=== PATIENT | male | born 1975 ===

== ENCOUNTER 2021-05-06 07:44 | Day surgery (SDC) | payer BC ==
[2021-05-01 16:08] LABS: Absolute Lymphocytes (CBC) 2.8 K/uL (0.7-4.9); Hematocrit 46.2 % (39.6-49.0); Lymphocytes % 27.8 % (15.3-44.8); MPV 7.8 fL (7.6-11.3); RBC Red Blood Cell Count 5.22 M/uL (4.33-5.43)
[2021-05-01 16:16] LABS: Potassium 4.1 mmol/L (3.5-5.1)
[2021-05-06] MEDS ORDERED: Ringers Lactate 1,000 ML IV ONE (08:16)
[2021-05-06] MEDS ORDERED: CEFAZOLIN SODIUM 1 GM/VIAL ONE (08:16)
[2021-05-06] MEDS ORDERED: NA CHLORIDE 0.9% 50 ML ONE (08:16)
[2021-05-06] MEDS ORDERED: MIDAZOLAM HCL 2 MG/2 ML INJ ONE (08:19)
[2021-05-06] MEDS ORDERED: dexAMETHasone 10 MG/ML VIAL ONE (08:19)
[2021-05-06] MEDS ORDERED: LIDOCAINE 2% MPF 5 ML VIAL ONE (08:19)
[2021-05-06] MEDS ORDERED: KETOROLAC 30 MG/ML INJ ONE (08:19)
[2021-05-06] MEDS ORDERED: ROCURONIUM 50 MG/5 ML VIAL IV ONE (08:19)
[2021-05-06] MEDS ORDERED: LIDOCAINE 1% MPF 5 ML VIAL ONE (08:19)
[2021-05-06] MEDS ORDERED: propofoL 200 MG/20 ML VIAL IV ONE (08:19)
[2021-05-06] MEDS ORDERED: FENTANYL CITR 100 MCG/2 ML ONE (08:19)
[2021-05-06] MEDS ORDERED: ONDANSETRON 4 MG/2 ML VIAL ONE (08:20)
[2021-05-06] MEDS ORDERED: CELECOXIB 100 MG CAPSULE ONE ×2 (08:39→08:42)
[2021-05-06] MEDS ORDERED: ACETAMINOPHEN 500 MG TAB ONE (08:40)
[2021-05-06] MEDS ORDERED: ROPLVACAINE HCL 40 ML ONE (08:44)
[2021-05-06] MEDS ORDERED: ALBUTEROL 2.5 MG/3 ML NEB SOL ONE (11:59)
[2021-05-06] MEDS: HYDROMORPHONE HCL 1 MG/ML INJ ONE ×2 (12:03→12:08)
[2021-05-06 12:12] VITALS: O2SAT 92
[2021-05-06 13:28] VITALS: BP 138/84; TEMP 96.5
--- NOTE | 2021-05-06 23:04 | OP ---
Date of Procedure: 05/06/2021 Surgeon: Abiel Jarquin MD Preoperative Diagnosis: Right shoulder pain with probable impingement, bursitis, and acromioclavicul ar arthritis, possible biceps pathology or rotator cuff tear. Postoperative Diagnoses: 1.Right shoulder impingement with bursitis. 2.Right acromioclavicular arthritis. 3.Fraying of the biceps anchor. There is no rotator cuff tear seen. Procedure: 1.Arthroscopy of the right shoulder with debridement of biceps anchor and abundant synovial tissue. 2.Mini open subacromial decompression with distal clavicle excision and removal of bursa. Estimated Blood Loss: 20 cc. Complications: No complications. Specimens: No pathology specimens. Indications For Operation: The patient is a 45-year-old male who came to see me in my office with pe rsistent complaints of pain in his left shoulder, treated initially with injection and conservative m easures, however, failed to improve. Also treated with physical therapy and failed to improve. An M RI was done, which demonstrates no overt rotator cuff tear, although there did appear to be some infl ammation related to the bursa as well as some changes of the acromioclavicular joint. Risks, benefit s, and alternatives of different methods of treatments have been discussed with him, and he states he understands things as presented and wants to proceed with right shoulder surgery. Description Of Procedure: The patient was taken to the operating room and placed in supine position. General anesthesia was obtained by staff. Following this, he was placed in a beach chair position. Right upper extremity was then prepped and draped in usual sterile fashion for arthroscopy. Follow ing this, a standard posterior arthroscopy incision was then made for placement of arthroscopic camer a, which was placed atraumatically with one pass into the shoulder. This demonstrates a significant amount of synovial fraying as well as some hyperemia of the biceps tendon; however, the biceps tendon itself appeared to be intact with exception of some inflammation. Some of the labrum did appear to be frayed as well. An anterior arthroscopy portal was made lateral to the coracoid, allowing for the placement of a probe and shaver. The shaver was then placed within the shoulder and the synovial fr onding was removed as well as a wide debridement near the biceps anchor. Following this, the arthros copic instruments were removed. The posterior portal was stapled and the shoulder was then prepped a nd again all gloves and equipment were changed and palpation demonstrated the region of the acromiocl avicular joint. A standard incision was made lateral to this, carefully through skin and soft tissue s. There was quite a bit of adipose tissue, does lead down to the deltoid and the acromion. The le ading edge of the acromion is then revealed using a Bovie, and the deltoid as well as the coracoacrom ial ligament are tagged for later repair. A small anterior acromioplasty followed by subacromial acr omioplasty and a rasp were then used to allow for a smooth outlet. The bursa itself was removed usin g a rongeur and use of irrigation and movement of the shoulder demonstrates no obvious rotator cuff t ear. Attention was then turned to the acromioclavicular joint, which is somewhat obliquely aligned w ith a significant amount of downwardly projecting prominence as well as osteophyte formation. Charnl ey was used to protect the undersurface as distal clavicle excision was made, which parallels the ang le of the acromion. Intervening material was also removed. Care was made to maintain the clavicular ligaments. This was checked with a finger to ensure there was no impingement with cross-arm adducti on, also to unsure that there was no further bony prominences. After this was done, the shoulder was again inspected with good outlet and the wound was irrigated. The deltoid was then repaired back to the trapezial fascia as well as the acromion using bone tunnels as well as oversewn with Vicryl sutu res. The wound was again irrigated and the skin was closed using Vicryl sutures, followed by allie . The patient was then placed in a sterile dressing, awakened, and taken to recovery room in good condition. No complications. SE/MODL Voice ID: [id number] Report ID: [id number]
== END 2021-05-06 12:50 | disposition home or self-care (01) ==
LOC: OR 07:44
PROVIDERS: ATTEND Orthopaedic Surgery
PROC: 0PB90ZZ Excision of Right Clavicle, Open Approach (ICD-10-PCS; 2021-05-06)
PROC: 0MB10ZZ Excision of Right Shoulder Bursa and Ligament, Open Approach (ICD-10-PCS; 2021-05-06)
PROC: 0RNJ4ZZ Release Right Shoulder Joint, Percutaneous Endoscopic Approach (ICD-10-PCS; principal; 2021-05-06 09:00)
DX: M25.811 Other specified joint disorders, right shoulder (principal); M75.51 Bursitis of right shoulder; M19.011 Primary osteoarthritis, right shoulder; Z20.822 Contact with and (suspected) exposure to COVID-19
CPT/HCPCS: 85025; 80048; 36415; 29822; 23120; 23929; U0003; J2704; J2250; J3010; J1100; J2795; J1170; J7120; J2405; J0690